=== PATIENT | male | born 1940 | race Caucasian/White ===

== ENCOUNTER 2019-02-12 14:11 | Outpatient (CLI) | payer MEDICARE, BC ==
[2019-02-12 16:04] LABS: Hemoglobin 13.2 g/dL (14.0-18.0); Mean Corpuscular HGB CONC 33.7 g/dL (32.0-36.0); Mean Corpuscular Hemoglobin 33.6 pg (27.0-31.0); Mean Corpuscular Volume 99.4 fL (78.0-98.0); Mean Platelet Volume 9.7 fL (7.4-10.4); Platelet Count 123 thou/uL (130-400); RBC Distribution Width 11.6 % (11.5-14.5); Red Blood Cell (RBC) Count 3.92 mill/uL (4.70-6.10); White Blood Cell (WBC) Count 8.7 thou/uL (4.8-10.8)
[2019-02-12 16:24] LABS: Anion Gap 10 mmol/L (10-20); BUN (Urea Nitrogen) 24 mg/dL (8.4-25.7); Calc. Creatinine Clearance 0 mL/min (70-130); Calcium 9.5 mg/dL (7.8-10.44); Carbon Dioxide 24 mmol/L (23-31); Chloride 107 mmol/L (98-107); Estimated GFR-MDRD 46; Glucose 95 mg/dL (83-110); Potassium 4.1 mmol/L (3.5-5.1); Sodium 137 mmol/L (136-145)
== END 2019-02-12 14:12 | disposition home or self-care (01) ==
LOC: LABBT 14:11
PROVIDERS: ATTEND Dentist Oral and Maxillofacial Surgery
DX: Z01.818 Encounter for other preprocedural examination (principal); M27.2 Inflammatory conditions of jaws; K04.7 Periapical abscess without sinus
CPT/HCPCS: 80048; 85027; 93005; 93010

== ENCOUNTER 2019-02-14 09:02 | Observation (INO) | payer MEDICARE, BC ==
[2019-02-12 14:33] VITALS: BMI 28.7
[~2019-02-14 09:02] MED LIST: Heparin 1,000 UNITS/ML VIAL ONE
[2019-02-14] MEDS ORDERED: Clindamycin/D5W 600 mg/50 ml Premix Bag ONE (09:53)
[2019-02-14] MEDS ORDERED: Dexamethasone 4 mg/ml Vial ONE (09:53)
[2019-02-14] MEDS ORDERED: Midazolam HCl 2 mg/2 ml Vial ONE (11:07)
[2019-02-14] MEDS ORDERED: Hydrocortisone 1% Cream 30 GM TUBE ONE (11:07)
[2019-02-14] MEDS ORDERED: Ketamine 50 MG/ML (10ML VIAL) ONE (11:08)
[2019-02-14] MEDS ORDERED: Chlorhexidine Gluconate 15 ML UDCUP SSP ONE ×2 (11:08→11:09)
[2019-02-14] MEDS ORDERED: Lidocaine 1% w/Epinephrine 1:100K 20 ML VIAL ONE (11:09)
[2019-02-14] MEDS ORDERED: Sodium Chloride 0.9% 10 ML ONE ×2 (11:11→11:12)
[2019-02-14] MEDS ORDERED: Oxymetazoline HCl 0.05% ( 15 ML ) ONE (11:15)
[2019-02-14] MEDS ORDERED: Ondansetron HCl/PF 4 MG/2 ML Vial IVP PRN (13:53)
[2019-02-14] MEDS ORDERED: Promethazine HCl 25 MG/ML VIAL IM PRN (13:53)
[2019-02-14] MEDS ORDERED: Promethazine HCl 25 MG/ML VIAL SLOW IVP PRN (13:53)
[2019-02-14] MEDS ORDERED: Ondansetron PF 4 MG/2 ML Vial IVP PRN (14:00)
[2019-02-14] MEDS ORDERED: Morphine 4 MG/ML VIAL IV PRN (14:04)
[2019-02-14] MEDS ORDERED: D5 1/2 NS w/20 mEq KCL 1,000 ML IV SCH ×2 (14:15→22:30)
[2019-02-14] MEDS ORDERED: Clindamycin/D5W 600 MG in Premix Bag 1 BAG IVPB SCH ×2 (16:00→23:59)
[2019-02-14] MEDS: Ibuprofen 800 MG TAB PO SCH (17:30)
[2019-02-14] MEDS ORDERED: PROPOFOL 200 MG/20 ML VIAL ONE (18:44)
[2019-02-14] MEDS ORDERED: Ondansetron PF 4 MG/2 ML Vial ONE (18:44)
[2019-02-14] MEDS ORDERED: Dexamethasone 20 MG/5 ML VIAL ONE (18:44)
[2019-02-14] MEDS ORDERED: PHENYLEPHRINE-NS 100 MCG/ML 10 ML SYRINGE ONE (18:44)
[2019-02-14] MEDS ORDERED: ePHEDrine 50 MG/ML VIAL ONE (18:44)
[2019-02-14] MEDS ORDERED: Esmolol 100 MG/10 ML VIAL ONE (18:44)
[2019-02-14] MEDS ORDERED: Glycopyrrolate 0.2 MG/ML 5 ML SYRINGE ONE (18:44)
[2019-02-14] MEDS ORDERED: Rocuronium Bromide 10 MG/ML (10ML VIAL) ONE (18:44)
[2019-02-14] MEDS: HYDROcodone/Acetaminophen 5/325 mg Tablet PO PRN (20:08)
[2019-02-14] MEDS: Finasteride 5 MG TAB PO SCH ×2 (20:09→20:31)
[2019-02-14] MEDS: Chlorhexidine Gluconate 15 ML UDCUP SSP SCH (20:09)
[2019-02-14] MEDS ORDERED: Tamsulosin HCl 0.4 MG CAP PO SCH (21:00)
[2019-02-14] MEDS: MEROPENEM 1 GM/50 ML 1 GM in Premix Bag 1 BAG IVPB SCH (21:56)
[2019-02-14] MEDS: Mupirocin 2% Ointment 22 GM Tube TOP SCH (21:57)
--- NOTE | 2019-02-14 22:07 | PDOC.HOSPP ---
- Subjective Encounter Date: 02/14/19 Encounter Time: 22:00 Subjective: Consulted for general med mgmt s/p dental extraction with mandibular osteomyelitis on current Meropenem. No new complaints. Reviewed pertinent past medical/surgical hx and radiographs. - Objective Vital Signs & Weight: Vital Signs (12 hours) Temp Pulse Resp BP Pulse Ox 02/14/19 21:15 98.2 F 71 16 139/71 95 02/14/19 16:35 97.6 F 71 18 153/74 H 94 L Weight Weight 200 lb Additional Labs: Laboratory Tests 02/12/19 02/12/19 15:56 15:56 WBC 8.7 Hgb 13.2 L Hct 39.0 L Plt Count 123 L Sodium 137 Potassium 4.1 Chloride 107 Carbon Dioxide 24 Anion Gap 10 BUN 24 Creatinine 1.49 H Estimated GFR (MDRD) 46 Glucose 95 Calcium 9.5 EKG Reviewed by me: Yes (AV pacing in 60's) Hospitalist ROS - Medication Medications: Active Medications Generic Name Dose Route Start Last Admin Trade Name Freq PRN Reason Stop Dose Admin Hydrocodone Bitart/Acetaminophen 1 tab 02/14/19 14:04 02/14/19 20:08 [place] 5/325 PO 1 tab Q6H PRN Administration Pain Chlorhexidine Gluconate 15 ml 02/14/19 21:00 02/14/19 20:09 Chlorhexidine Gluconate SSP 15 ml BID YRIS Administration Finasteride 5 mg 02/14/19 21:00 02/14/19 20:31 Proscar PO Not Given HS YRIS Potassium Chloride/Dextrose/Sod Cl 1,000 mls @ 75 mls/hr 02/14/19 14:15 02/14 17:24 D5 1/2 Ns W/20 Meq Kcl IV 1,000 mls .[id number] YRIS Administration Meropenem 1 gm/ Device 50 mls @ 100 mls/hr 02/14/19 22:00 02/14/19 21:56 IVPB 50 mls Q8HR YRIS Administration Ibuprofen 800 mg 02/14/19 18:00 02/14/19 17:30 Motrin PO 800 mg Q6HR YRIS Administration Morphine Sulfate 4 mg 02/14/19 14:04 02/14/19 17:26 Morphine IV 4 mg Q4H PRN Administration BREAKTHROUGH PAIN Mupirocin 0 gm 02/14/19 21:00 02/14/19 21:57 Bactroban 2% Ointment TOP Not Given TID YRIS Sodium Chloride 10 ml 02/14/19 21:00 02/14/19 20:09 Flush - Normal Saline IVF 10 ml Q12HR YRIS Administration Tamsulosin HCl 0.4 mg 02/14/19 21:00 02/14/19 20:09 Flomax PO 0.4 mg HS YRIS Administration - Exam General Appearance: NAD, awake alert Eye: PERRL, anicteric sclera ENT: normocephalic atraumatic, moist mucosa Neck: supple, symmetric, no JVD, no thyromegaly, no lymphadenopathy Heart: RRR, no murmur, no gallops, no rubs, normal peripheral pulses Respiratory: CTAB, no wheezes, no rales, no ronchi, normal chest expansion Gastrointestinal: soft, non-tender, non-distended, normal bowel sounds, no palpable masses Extremities: no cyanosis, no clubbing, no edema Skin: normal turgor, no lesions Neurological: cranial nerve grossly intact, no focal deficits, no new deficit Musculoskeletal: normal tone, normal strength, no muscle wasting Psychiatric: normal affect, A&O x 3 Hosp A/P (1) HTN (hypertension) Code(s): I10 - ESSENTIAL (PRIMARY) HYPERTENSION Status: Chronic Qualifiers: Hypertension type: essential hypertension Qualified Code(s): I10 - Essential (primary) hypertension Plan: Resume home BP regimen and monitor trend, PRN Hydralazine for SBP > 170 (2) Osteomyelitis of mandible Code(s): M27.2 - INFLAMMATORY CONDITIONS OF JAWS Status: Acute Plan: s/p #31 tooth extraction on current Meropenem, plan for IV abx as outpt, await final bone cx results (3) CAD (coronary artery disease) Code(s): I25.10 - ATHSCL HEART DISEASE OF [place] CORONARY ARTERY W/O ANG PCTRS Status: Chronic Plan: Chronic, stable, continue ASA, Metoprolol (4) Ventricular tachycardia Code(s): I47.2 - VENTRICULAR TACHYCARDIA Status: Chronic Plan: s/p ICD placement, continue Amiodarone, Metoprolol (5) Ischemic cardiomyopathy Code(s): I25.5 - ISCHEMIC CARDIOMYOPATHY Status: Chronic Plan: Last EF 35%, continue outpt medication regimen, no evidence of acute decompensation (6) CKD (chronic kidney disease), stage III Code(s): N18.3 - CHRONIC KIDNEY DISEASE, STAGE 3 (MODERATE) Status: Chronic Plan: Avoid nephrotoxic agents and limit contrast exposure, continue low-volume IVF's - Plan continue antibiotics, social science manager, DVT proph w/SCDs Stable currently Continue home BP regimen Decrease IVF's 50ml/h Pain control as clinically indicated Plan for IV abx per ID recommendations DVT ppx AM lab: BMP, CBC Thank you for the consult. Will continue to follow with primary service.
[2019-02-15] MEDS: Ibuprofen 800 MG TAB PO SCH ×3 (00:06→12:08)
--- NOTE | 2019-02-15 01:16 | CON ---
DATE OF CONSULTATION: 02/14/2019 REASON FOR CONSULTATION: Jaw osteomyelitis. HISTORY OF PRESENT ILLNESS: 78-year-old patient with history of hypertension, skin cancer and prior knee replacement, who developed jaw osteomyelitis following tooth extractions #31 and #30, as well as the wisdom tooth. The patient has been treated with courses of oral clindamycin with temporary improvement and relapse of the inflammatory process. Dr. Tucker brought him in today and did an I and D process. Cultures are pending, as well as the pathology from the bone fragments. He has moderate pain at the site but no headaches, no visual symptoms, dyspnea or chest pain, no abdominal pain, diarrhea or genitourinary symptoms. No joint symptoms. PAST MEDICAL HISTORY: Hypertension, osteoarthrosis, teeth extractions, skin cancer, knee replacement. SOCIAL HISTORY: Retired. 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 Drinks occasionally. No smoking history. ALLERGIES: SULFA DRUGS WITH RASH. MEDICATIONS: 1. Bystolic. 2. Flomax. 3. Norvasc. 4. He is on clindamycin right now. PHYSICAL EXAMINATION: VITAL SIGNS: Temperature 97.6, BP 150/74, pulse 71, respirations 18, and O2 saturation 94. SKIN: Not remarkable except for peripheral IV access. He is voiding in the toilet. No lymphadenopathy. HEENT: Ocular movements conjugate. Sclerae white. Pupils are equal. Oral cavity with the area of surgical intervention on the left side. NECK: Supple. No jugular vein distention. LUNGS: Clear to auscultation and percussion. HEART: S1 and S2 regular rate without murmurs. ABDOMEN: Soft, not distended or tender. No ascites. No bladder distention. EXTREMITIES: Moves extremities equally. Cognitive function appears to be intact. LABORATORY DATA: From the , we have a white cell count 8.7, hemoglobin 13, platelets 123, creatinine 1.49, glucose 95. We do not have previous creatinine values. Urinalysis with 21 to 50 wbc's. No imaging studies done this time. ASSESSMENT: Jaw osteomyelitis following tooth extractions. The usual pathogens including microaerophilic streptococci, anaerobes, both gram-positive and gram-negative are the more likely pathogens in this situation, gram-negative rods, Enterobacteriaceae and Staph aureus less likely. We will switch him to Merrem. Await for culture results and then adjust therapy accordingly. PICC line placement and plan for long-term therapy in the outpatient setting. Job ID: [id number]
[2019-02-15] MEDS: HYDROcodone/Acetaminophen 5/325 mg Tablet PO PRN (02:10)
[2019-02-15] MEDS: MEROPENEM 1 GM/50 ML 1 GM in Premix Bag 1 BAG IVPB SCH ×2 (05:35→14:00)
[2019-02-15 06:45] LABS: Hemoglobin 12.3 g/dL (14.0-18.0); Mean Corpuscular Hemoglobin 33.2 pg (27.0-31.0); Mean Corpuscular Volume 97.7 fL (78.0-98.0); Mean Platelet Volume 9.9 fL (7.4-10.4); Platelet Count 99 thou/uL (130-400); RBC Distribution Width 11.4 % (11.5-14.5); Red Blood Cell (RBC) Count 3.69 mill/uL (4.70-6.10); White Blood Cell (WBC) Count 19.5 thou/uL (4.8-10.8)
[2019-02-15 06:57] LABS: Anion Gap 12 mmol/L (10-20); BUN (Urea Nitrogen) 25 mg/dL (8.4-25.7); Calc. Creatinine Clearance 52 mL/min (70-130); Calcium 8.7 mg/dL (7.8-10.44); Carbon Dioxide 21 mmol/L (23-31); Chloride 108 mmol/L (98-107); Estimated GFR-MDRD 44; Glucose 159 mg/dL (83-110); Potassium 4.5 mmol/L (3.5-5.1); Sodium 136 mmol/L (136-145)
[2019-02-15 07:20] LABS: Band 6 % (5-11); Lymphocytes 14 % (21-51); MDiff Complete? YES; Monocytes 2 % (0-10); Neutrophil 78 % (42-75); Platelet Morphology Comment Appears Decreased; RBC Morphology Normal
[2019-02-15] MEDS ORDERED: Valsartan 80 MG TAB PO SCH (09:00)
[2019-02-15] MEDS ORDERED: Amiodarone 200 MG TAB PO SCH (09:00)
[2019-02-15] MEDS ORDERED: Furosemide 40 MG TAB PO SCH (09:00)
[2019-02-15] MEDS ORDERED: Cyanocobalamin (Vitamin B-12) 1,000 MCG TAB PO SCH (09:00)
[2019-02-15] MEDS ORDERED: Fenofibrate 48 MG TAB PO SCH (09:00)
[2019-02-15] MEDS ORDERED: Loratadine 10 MG TAB PO SCH (09:00)
[2019-02-15] MEDS ORDERED: Finasteride 5 MG TAB PO SCH (09:00)
[2019-02-15] MEDS ORDERED: Aspirin 81 mg Enteric Coated Tablet PO SCH (09:00)
[2019-02-15] MEDS: Chlorhexidine Gluconate 15 ML UDCUP SSP SCH (09:10)
[2019-02-15] MEDS: Mupirocin 2% Ointment 22 GM Tube TOP SCH ×2 (09:12→14:00)
--- NOTE | 2019-02-15 10:42 | PDOC.HOSPP ---
- Subjective Encounter Date: 02/15/19 Encounter Time: 07:20 Subjective: Pt seen for followup re: hypertension. No complaints. No fevers or chills. - Objective Vital Signs & Weight: Vital Signs (12 hours) Temp Pulse Resp BP Pulse Ox 02/15/19 07:24 97.5 F L 69 16 131/69 95 02/15/19 04:33 98.3 F 70 16 117/70 95 02/15/19 00:57 98.2 F 74 16 136/77 96 Weight Weight 200 lb I&O: 02/14/19 02/15/19 02/16/19 06:59 06:59 06:59 Intake Total 500 Output Total 425 Balance 75 Result Diagrams: 02/15/19 06:27 02/15/19 06:27 Additional Labs: Labs and MARs reviewed by ok Hospitalist ROS - Review of Systems Cardiovascular: denies: chest pain, palpitations, orthopnea, paroxysmal noc. dyspnea, edema, light headedness Gastrointestinal: denies: nausea, vomiting, abdominal pain, diarrhea, constipation, melena, hematochezia - Medication Medications: Active Medications Generic Name Dose Route Start Last Admin Trade Name Freq PRN Reason Stop Dose Admin Hydrocodone Bitart/Acetaminophen 1 tab 02/14/19 14:04 02/15/19 02:10 [place] 5/325 PO 1 tab Q6H PRN Administration Pain Aspirin 81 mg 02/15/19 09:00 02/15/19 09:11 Ecotrin PO 81 mg DAILY YRIS Administration Chlorhexidine Gluconate 15 ml 02/14/19 21:00 02/15/19 09:10 Chlorhexidine Gluconate SSP 15 ml BID YRIS Administration Cyanocobalamin 2,500 mcg 02/15/19 09:00 02/15/19 09:11 Vitamin B-12 PO 2,500 mcg QAM YRIS Administration Fenofibrate 48 mg 02/15/19 09:00 02/15/19 09:11 Tricor PO 48 mg DAILY YRIS Administration Finasteride 5 mg 02/15/19 09:00 02/15/19 09:11 Proscar PO 5 mg QAM YRIS Administration Furosemide 40 mg 02/15/19 09:00 02/15/19 09:11 Lasix PO 40 mg QAM YRIS Administration Meropenem 1 gm/ Device 50 mls @ 100 mls/hr 02/14/19 22:00 02/15/19 05:35 IVPB 50 mls Q8HR YRIS Administration Potassium Chloride/Dextrose/Sod Cl 1,000 mls @ 50 mls/hr 02/14/19 22:30 02/15 00:05 D5 1/2 Ns W/20 Meq Kcl IV 1,000 mls .Q20H YRIS Administration Ibuprofen 800 mg 02/14/19 18:00 02/15/19 05:39 Motrin PO Not Given Q6HR YRIS Loratadine 10 mg 02/15/19 09:00 02/15/19 09:11 Claritin PO 10 mg QAM YRIS Administration Metoprolol Succinate 25 mg 02/15/19 09:00 02/15/19 09:11 Toprol Xl PO 25 mg DAILY YRIS Administration Morphine Sulfate 4 mg 02/14/19 14:04 02/14/19 17:26 Morphine IV 4 mg Q4H PRN Administration BREAKTHROUGH PAIN Mupirocin 0 gm 02/14/19 21:00 02/15/19 09:12 Bactroban 2% Ointment TOP 1 applic TID YRIS Administration Sodium Chloride 10 ml 02/14/19 21:00 02/15/19 09:13 Flush - Normal Saline IVF Not Given Q12HR YRIS Tamsulosin HCl 0.4 mg 02/14/19 21:00 02/14/19 20:09 Flomax PO 0.4 mg HS YRIS Administration Valsartan 40 mg 02/15/19 09:00 02/15/19 09:11 Diovan PO 40 mg DAILY YRIS Administration - Exam General Appearance: NAD Eye: anicteric sclera ENT: moist mucosa Neck - other findings: warmth over right side of mandible Heart: RRR Respiratory: CTAB Gastrointestinal: soft, non-tender Extremities: no cyanosis Skin: normal turgor Neurological: no weakness Psychiatric: normal affect Hosp A/P (1) HTN (hypertension) Code(s): I10 - ESSENTIAL (PRIMARY) HYPERTENSION Status: Chronic Qualifiers: Hypertension type: essential hypertension Qualified Code(s): I10 - Essential (primary) hypertension (2) CAD (coronary artery disease) Code(s): I25.10 - ATHSCL HEART DISEASE OF [place] CORONARY ARTERY W/O ANG PCTRS Status: Chronic (3) CKD (chronic kidney disease), stage III Code(s): N18.3 - CHRONIC KIDNEY DISEASE, STAGE 3 (MODERATE) Status: Chronic (4) Ischemic cardiomyopathy Code(s): I25.5 - ISCHEMIC CARDIOMYOPATHY Status: Chronic - Plan continue antibiotics, out of bed/ambulate HTN controlled. CKD and CAD stable. Await PICC line. Continue IV meropenem.
--- NOTE | 2019-02-15 11:22 | SPC ---
Ultrasound-guidedrightupper extremity PICC placement: 02/15/2019 HISTORY: Tooth infection, IV antibiotics FINDINGS: Informed consent obtained prior to the procedure. Right antecubital fossa prepped and draped in normal sterile fashion. Skin overlying theright basilicvein anesthetized with 1% buffered lidocaine. With direct sonographic guidance, vascular access is obtained via the right basilicvein and an 0.018in wire was advanced to the cavoatrial junction. Intravascular length is calculated at 35 cm and of the PICC is cut according ly. Needle is removed and replaced with a peel-away sheath. The PICC was advanced over the wire. Wire and peel-away sheath were removed. The tip of the catheter overlies the cavoatrial junction. The port flushes well and the catheter is ready for use. Exposure data: 0.1 minutes of fluoroscopic time 710 mGy per centimeter squared IMPRESSION: Successful ultrasound guided placement of a rightupper extremity PICC.
[2019-02-15 16:51] VITALS: BP 137/68; TEMP 98.1
--- NOTE | 2019-02-16 12:52 | OP ---
DATE OF PROCEDURE: 02/14/2019 PREOPERATIVE DIAGNOSES: 1. Right mandibular osteomyelitis. 2. Infected tooth 30. 3. Periodontal involved, nonfunctional tooth 32. POSTOPERATIVE DIAGNOSES: 1. Right mandibular osteomyelitis. 2. Infected tooth 30. 3. Periodontal involved, nonfunctional tooth 32. PROCEDURES PERFORMED: 1. Debridement of right mandibular osteomyelitis. 2. Surgical removal of teeth 30 and 32. INDICATIONS: This is a 78-year-old male, status post removal of fractured tooth #31 with subsequent course of postoperative infections and lack of healing in site 31. Postoperatively, it was determined that tooth #30 was also infected secondary to an inadequate root canal performed years earlier and treatment ensued on tooth #30 , but the patient never responded from an infection standpoint. The chronic non- healing and infected surgical site on tooth 31 ultimately progressed to a right mandibular osteomyelitis for which he is brought to the operating room at this time. PROCEDURE IN DETAIL: The patient was identified in the preoperative holding area and all questions were answered. The patient was taken to the operating room, transferred to the operating room table in supine position and intubated by the Anesthesia Service after induction of a general anesthetic. Surgical time-out was performed. Local anesthetic was delivered to the right mandible. A sulcular incision with a 15 blade was made from tooth #29 region to the tooth #32 region and a hockey-stick incision of bone was made on the distal buccal aspect of tooth 32. A full- thickness mucoperiosteal flap was raised to expose the lateral aspect of the right mandible. Upon exposure of the mandible, significant necrotic bone was encountered in the tooth 30 and 31 region. Tooth #30 was sectioned with a bur and removed with a combination of elevators and forceps. Tooth #32 was also sectioned and removed with elevators and forceps as well. After removal of tooth 30 and 32, the sockets were curetted and significant periapical inflammatory tissue was noted specifically around tooth #30 in the distal root region. After removal of the teeth, the attention was turned back to debridement of all non-salvageable bone in the right mandible. This was accomplished using combination of both hand instruments and handpiece with a bur. All debridement was done after irrigation with bacitracin-infused normal saline. Debridement continued in this manner until all nonviable and diseased bone was removed and good bleeding bone remained. After debridement, it was noted that there was significant good bone stock in the region, which decreased concerns for risk of pathologic fracture. After completion of debridement, all wounds were copiously irrigated with bacitracin infused normal saline. It should also be noted that a combination of both soft tissue and necrotic bone were sent for cultures and pathology. After copious irrigation, the wounds were closed with combination of 4-0 Vicryl and 4-0 chromic gut sutures. After closure, the oral cavity was irrigated and suctioned free of fluid and debris and the throat pack, which had been placed at the beginning of the procedure was removed. The patient was turned over to the Anesthesia Service for emergence and extubation, which ensued without complication. ESTIMATED BLOOD LOSS: 15 mL. INTRAVENOUS FLUIDS: Please see anesthetic record for full details. COMPLICATIONS: None. DRAINS: None. IMPLANTS: None. SPECIMENS: Inflammatory soft tissue and necrotic bone from the right mandible for culture and histology. FINDINGS: Significant diseased, infected, necrotic bone in the tooth 30 and 31 region with significant periapical inflammatory tissue associated with the distal root of tooth #30. DISPOSITION: The patient was transferred to the recovery room in good condition. Job ID: [id number] [facility]
--- NOTE | 2019-02-16 12:52 | DIS ---
DATE OF ADMISSION: 02/14/2019 DATE OF DISCHARGE: 02/15/2019 ADMISSION DIAGNOSIS: Right mandibular osteomyelitis with infected teeth 30 and 32. DISCHARGE DIAGNOSIS: Right mandibular osteomyelitis, infected tooth 30 and 32, status post debridement and removal of teeth. CONSULTS: Dr. Ortiz with Infectious Disease. PROCEDURES: On February 14, 2019, the patient underwent a debridement of the right mandible and removal of teeth 30 and 32. HISTORY, EXAM, AND COURSE: The patient had an infected tooth 31 removed several months prior and underwent course of recurrent infections in the tooth 30 and 31 region and inadequate healing, which subsequently evolved into right mandibular osteomyelitis. The patient was admitted status post trip to the operating room on February 14, 2019, for debridement of the right mandible. The patient's hospital course was uneventful and the patient recovered well after surgery. Dr. Ortiz was consulted for initiation of long-term intravenous antibiotics to treat the right mandibular osteomyelitis. The patient received his PICC line without incident and on postoperative day #1 was ready for discharge. DISCHARGE CONDITION: Good. DISPOSITION: Discharged home. INSTRUCTIONS: Soft diet, strict oral hygiene, intravenous antibiotic regimen per Dr. Ortiz. FOLLOWUP: The patient is to follow up with Dr. Ortiz as instructed and is to follow up with me in 1 week for evaluation of healing. Job ID: [id number] MTDD
[2019-02-16] MEDS ORDERED: Amiodarone 200 MG TAB PO SCH (21:00)
--- NOTE | 2019-03-14 06:09 | PQF ---
[facility] POST DISCHARGE CLINICAL DOCUMENTATION IMPROVEMENT CLARIFICATION FORM l Todays Date: 03/14/19 l Patients Name SILVA NIELSON l l Admit Date 02/14/19 l Disch Date 02/15/19 Chief Controller Tower Name Dylon Veras Email: [email or web address] Cell: [phone] To be completed by Chief Controller Tower: Present Clinical Indicators - Signs / Symptoms Results and Location in Medical Record [ ] Documentation of: [ ] [ ] Documentation of: [ ] [ ] Documentation of: [ ] [ ] Documentation of: [ ] [ ] Risks [ ] [ ] [ ] Treatment [ ] Osteomyelitis of Mandible Query for area (sq cm) of debridement - mandible [ ] [ ] To be completed by Physician: JAMEE SHIN The documentation in this patients record requires clarification to ensure coding compliance and accuracy. Check the appropriate box and include in your discharge summary. [x ] ___1.8 sq cm [ ] [ ] [ ] Please check this box if this does not apply to this patient [ ] Unable to determine [ ] Other diagnosis: Review the following information and exercise your independent professional judgment in responding to the clarification. Based upon the clinical findings, risk factors, and treatment, please clarify if you are treating one of the above probable or suspected diagnoses. Physician Signature: Date Time MTDD
== END 2019-02-15 17:00 | disposition home or self-care (01) ==
LOC: SDC 09:02 → SURG A 16:43
PROVIDERS: ADMIT Dentist Oral and Maxillofacial Surgery; ATTEND Dentist Oral and Maxillofacial Surgery
PROC: 0NBT0ZZ Excision of Right Mandible, Open Approach (ICD-10-PCS; principal; 2019-02-14)
PROC: 0CDXXZ1 Extraction of Lower Tooth, Multiple, External Approach (ICD-10-PCS; 2019-02-14)
PROC: 02HV33Z Insertion of Infusion Device into Superior Vena Cava, Percutaneous Approach (ICD-10-PCS; 2019-02-14)
DX: M27.2 Inflammatory conditions of jaws (principal); K04.7 Periapical abscess without sinus; B96.89 Other specified bacterial agents as the cause of diseases classified elsewhere; I25.2 Old myocardial infarction; I25.10 Atherosclerotic heart disease of native coronary artery without angina pectoris; I48.91 Unspecified atrial fibrillation; E78.5 Hyperlipidemia, unspecified; M19.90 Unspecified osteoarthritis, unspecified site; I47.2 Ventricular tachycardia; I25.5 Ischemic cardiomyopathy; I12.9 Hypertensive chronic kidney disease with stage 1 through stage 4 chronic kidney disease, or unspecified chronic kidney disease; N18.3 Chronic kidney disease, stage 3 (moderate); Z79.82 Long term (current) use of aspirin; Z79.899 Other long term (current) drug therapy; Z88.2 Allergy status to sulfonamides; Z88.8 Allergy status to other drugs, medicaments and biological substances; Z95.5 Presence of coronary angioplasty implant and graft; Z95.810 Presence of automatic (implantable) cardiac defibrillator; Z98.1 Arthrodesis status
CPT/HCPCS: 11044; 36569; 41899; 80048; 85007; 85027; 87070; 87075; 87205; 88307; 88311; 96361 ×2; 96365; 96366; 96367; 96375; G0378 ×2; G0379; 36415; J1100; J2185; J2250; J2270; J2405; J2704; J3490